=== PATIENT | female | born 1970 | race Caucasian/White ===

== ENCOUNTER 2019-09-16 07:12 | Emergency (ER) | payer BC ==
[~2019-09-16] VITALS: Ht 172.7 cm; Wt 90.0 kg
[2019-09-16] MEDS ORDERED: dexamethasone sod phosphate 10mg/ml inj IM STA (08:33)
[2019-09-16] MEDS ORDERED: orphenadrine citrate 60mg/2ml inj. IM ONE (08:35)
[2019-09-16] MEDS ORDERED: ketorolac tromethamine 15mg/ml inj. IM ONE (08:35)
--- NOTE | 2019-09-16 08:41 | NUR ---
called pharmacy to see if any of the 3 IM medications can be combined into 1 syringe
--- NOTE | 2019-09-16 08:43 | NUR ---
per [facility] pharmacy all 3 medications can be combined IM
[2019-09-16 09:09] VITALS: BP 122/76
[2019-09-16] MEDS ORDERED: TRAM50TA2 PO (09:15)
[2019-09-16] MEDS ORDERED: CYCL-1 PO (09:15)
[2019-09-16] MEDS ORDERED: HYDROcodone/acetaminophen 10/325mg tab PO ONE (09:45)
--- NOTE | 2019-09-16 09:51 | NUR ---
pt was given dc instructions and placed in a wheelchair. pt refused to get out of wheelchair into car. rn was with the patient and brought her back into the er. vs at hime hr 70 bp 126/78. Addendum: 09/16/19 at 1008 by LVLASTELIC at time of dc patient was placed in wheelchair with assists of brother.rn asked patient and brother if they were going to be able to fill the prescriptions on the way home they both verbalized yes. rn asked brother if he was able to care for the patient at home and brother stated that he was. dc instruction reviewed with patient and she verbalized understanding and signed the papers without incident. pt was able to stand from the bed and transfer with min assistance with brother. nurse was there as standby but patient stood and pivoted from bed to chair holding her brother's hand. pt was wheeled out in wheelchair to parking lot. brother and father came to pt's side to help her into the truck. the truck that the patient was bought to the er in was a tall lifted truck. the patient refused to stand up stating her pain was too great and that she wanted to be taken back into the er for more pain medication. pt started crying and cursing at rn stating for the first time since her dc that her pain was still 10/10. brother then stated he wanted a mri supervisor to come see the patient and that he cant take her home if she refuses to stand up. rn came in and told the pa and cn that she was going to bring the patient back into the er into the same room that she was just dc from. both agreed that was the correct action to be taken. vs when pt returned to room was bp 120/83 and hr 73. AT TIME OF DC CS 126/78 HR 70.
== END 2019-09-16 09:36 | disposition home or self-care (01) ==
LOC: ER 07:13
DX: M54.5 Low back pain (principal); G89.29 Other chronic pain; M41.9 Scoliosis, unspecified
CPT/HCPCS: 96372; 99283; J1100; J1885; J2360

== ENCOUNTER 2019-09-16 09:47 | Emergency (ER) | payer BC ==
[~2019-09-16] VITALS: Ht 175.3 cm; Wt 90.0 kg
[~2019-09-16 09:47] MED LIST: CYCL-1 PO; TRAM50TA2 PO
[2019-09-16] MEDS ORDERED: HYDROcodone/acetaminophen 10/325mg tab PO ONE (09:50)
--- NOTE | 2019-09-16 10:39 | NUR ---
pa notified pt continues to rate her pain 10/10 even after 2 norco
[2019-09-16] MEDS ORDERED: gabapentin 400mg capsule PO STA (10:53)
[2019-09-16] MEDS ORDERED: gabapentin 300mg capsule PO STA (10:54)
[2019-09-16 11:09] VITALS: BP 121/83
--- NOTE | 2019-09-16 11:41 | NUR ---
rn asked pt if she felt safe for dc and to return home. pt responded that yes she wanted to go home.pt ambulated out of the Er with the assistance of her brother
== END 2019-09-16 11:40 | disposition home or self-care (01) ==
LOC: ER 09:50
DX: M54.5 Low back pain (principal); M25.552 Pain in left hip; G89.29 Other chronic pain; Z79.899 Other long term (current) drug therapy; Z79.1 Long term (current) use of non-steroidal anti-inflammatories (NSAID); X50.1XXA Overexertion from prolonged static or awkward postures, initial encounter; Y93.89 Activity, other specified; Y92.89 Other specified places as the place of occurrence of the external cause; Y99.8 Other external cause status
CPT/HCPCS: 99283

== ENCOUNTER 2020-09-23 14:31 | Emergency (ER) | payer BC ==
[~2020-09-23] VITALS: Ht 172.7 cm; Wt 104.5 kg
[~2020-09-23 14:31] MED LIST changes: -TRAM50TA2 PO
[2020-09-23 14:36] VITALS: BP 134/95
[2020-09-23] MEDS ORDERED: ALBU6.7H9 INH (14:51)
== END 2020-09-23 15:11 | disposition home or self-care (01) ==
LOC: ER 14:31
DX: R51.9 Headache, unspecified (principal); J02.9 Acute pharyngitis, unspecified; R05 Cough; M54.9 Dorsalgia, unspecified; G89.29 Other chronic pain; Z79.899 Other long term (current) drug therapy; Z20.828 Contact with and (suspected) exposure to other viral communicable diseases
CPT/HCPCS: 36415; 99282